=== PATIENT | female | born 2000 | race Two or more races ===

== ENCOUNTER 2023-02-18 21:13 | Emergency (ER) | payer OTHER ==
[~2023-02-18] VITALS: Ht 149.9 cm; Wt 57.2 kg
[2023-02-19] MEDS ORDERED: KETO10TA2 PO (04:47)
== END 2023-02-18 22:29 | disposition home or self-care (01) ==
LOC: ER 21:13
DX: N39.0 Urinary tract infection, site not specified (principal); R10.2 Pelvic and perineal pain

== ENCOUNTER 2023-04-08 20:33 | Emergency (ER) | payer OTHER ==
[~2023-04-08] VITALS: Ht 149.9 cm; Wt 59.0 kg
[~2023-04-08 20:33] MED LIST: KETO10TA2 PO
== END 2023-04-09 00:15 | disposition home or self-care (01) ==
LOC: ER 20:33
DX: M25.561 Pain in right knee (principal)

== ENCOUNTER → 2023-04-14 | Emergency (ER) | payer OTHER ==
[~2023-04-14] VITALS: Ht 149.9 cm; Wt 59.0 kg
[~2023-04-14] MED LIST changes: +DICLOFENAC POTA50 MG PO
== END | disposition left against medical advice (07) ==
LOC: ER 00:23
DX: Z53.21 Procedure and treatment not carried out due to patient leaving prior to being seen by health care provider (principal)

== ENCOUNTER 2023-05-24 17:27 | Emergency (ER) | payer OTHER ==
[~2023-05-24] VITALS: Ht 149.9 cm; Wt 58.1 kg
[2023-05-24 21:47] LABS: HEMATOCRIT 37.3 % (36.0-45.00); HEMOGLOBIN 12.6 g/dL (12.0-15.00); MEAN CELL VOLUME 90.2 fL (80.00-100.00); MEAN CORPUSCULAR HEMOGLOBIN 30.5 pg (27.00-32.0); MEAN CORPUSCULAR HGB CONC 33.9 g/dl (32.0-36.0); PLATELET COUNT 274 K/uL (150-450); RED BLOOD COUNT 4.14 M/uL (4.00-6.00); RED CELL DISTRIBUTION WIDTH 12.2 % (11.5-14.5)
== END 2023-05-24 23:01 | disposition home or self-care (01) ==
LOC: ER 17:28
PROVIDERS: General Practice
DX: M54.2 Cervicalgia (principal); V43.92XA Unspecified car occupant injured in collision with other type car in traffic accident, initial encounter; Y93.89 Activity, other specified; Y92.413 State road as the place of occurrence of the external cause; S83.8X1A Sprain of other specified parts of right knee, initial encounter; N93.8 Other specified abnormal uterine and vaginal bleeding
CPT/HCPCS: 36415; 72040; 73560; 76830; 96372; 99284; J1885

== ENCOUNTER 2023-06-12 12:06 | Emergency (ER) | payer OTHER ==
[~2023-06-12] VITALS: Ht 149.9 cm; Wt 59.0 kg
[2023-06-12] MEDS ORDERED: TUSSIN DM LIQU118 ML PO (16:58)
[2023-06-12] MEDS ORDERED: XOPENEX CO1.25 MG/0. IH (16:58)
[2023-06-12] MEDS ORDERED: ZITHROMAX500 MG PO (16:58)
== END 2023-06-12 17:05 | disposition home or self-care (01) ==
LOC: ER 12:06
DX: J06.9 Acute upper respiratory infection, unspecified (principal); J45.909 Unspecified asthma, uncomplicated; Z20.822 Contact with and (suspected) exposure to COVID-19
CPT/HCPCS: 36415; 96372; 99284; J1100